=== PATIENT | male | born 1975 | race Caucasian/White ===

== ENCOUNTER 2024-12-11 12:48 | Inpatient (IN) | payer BC ==
[~2024-12-11 12:48] MED LIST: Iopamidol 370 76% 100 ML VIAL ONE
[2024-12-11 13:27] LABS: #Basophils 0.05 10x3/uL (0.0-0.2); #Eosinophils 0.52 10x3/uL (0.0-0.7); #Monocytes 0.75 10x3/uL (0.11-0.59); #Neutrophils 3.70 10x3/uL (1.40-6.50); %Basophils 0.6 % (0.0-1.0); %Eosinophils 6.0 % (0.0-10.0); %Lymphocytes 41.3 % (21.0-51.0); %Monocytes 8.7 % (0.0-10.0); %Neutrophils 42.9 % (42.0-75.0); Hematocrit 43.8 % (42.0-52.0); Hemoglobin 14.7 g/dL (14.0-18.0); Mean Corpuscular Hemoglobin 29.9 pg (27.0-31.0); Mean Corpuscular Volume 89.2 fL (78.0-98.0); Platelet Count 191 10x3/uL (130-400); Red Blood Cell (RBC) Count 4.91 mill/uL (4.70-6.10); White Blood Cell (WBC) Count 8.62 10x3/uL (4.8-10.8)
[2024-12-11] MEDS ORDERED: Aspirin Chewable 81 MG TAB ONE (13:30)
[2024-12-11] MEDS ORDERED: Nitroglycerin 0.4 MG TAB 1 EACH ONE (13:30)
[2024-12-11 13:41] LABS: ALT (SGPT) 75 U/L (Less than 45); AST (SGOT) 41 U/L (11-34); Albumin 4.8 g/dL (3.1-4.5); Alkaline Phosphatase 59 U/L (40-110); Anion Gap 16 mmol/L (10-20); BUN (Urea Nitrogen) 12 mg/dL (8.9-20.6); Bilirubin, Total 0.8 mg/dL (0.3-1.2); Calc. Creatinine Clearance 0 mL/min (70-130); Calcium 9.7 mg/dL (7.8-10.44); Carbon Dioxide 24 mmol/L (22-29); Chloride 103 mmol/L (98-107); Globulin 3.3 g/dL (2.4-3.5); Glucose 106 mg/dL (70-105); Potassium 3.4 mmol/L (3.5-5.1); Sodium 140 mmol/L (136-145)
[2024-12-11] MEDS ORDERED: Adenosine 6 mg (2 mL) VIAL ONE (14:36)
[2024-12-11] MEDS ORDERED: Heparin 10,000 UNITS/ 10 ML VIAL ONE ×3 (14:37→15:48)
[2024-12-11] MEDS ORDERED: PHENYLEPHRINE-NS 100 MCG/ML 10 ML SYRINGE ONE (14:37)
[2024-12-11] MEDS ORDERED: Nitroglycerin 50 MG/250 ML BOT 0 ML ONE (14:37)
[2024-12-11] MEDS ORDERED: Lidocaine 1% (PF) 30 ML VIAL ONE (14:37)
[2024-12-11] MEDS ORDERED: Heparin 25,000 UNITS/D5W 500 ml bag ONE (14:38)
[2024-12-11] MEDS ORDERED: Ondansetron PF 4 MG/2 ML Vial IVP PRN (18:24)
[2024-12-11] MEDS ORDERED: Senokot S 8.6-50 MG TAB PO PRN (18:24)
[2024-12-11] MEDS ORDERED: Calcium Carbonate 500 MG ChewTAB PO PRN (18:24)
[2024-12-11 23:56] LABS: #Basophils 0.04 10x3/uL (0.0-0.2); #Eosinophils 0.16 10x3/uL (0.0-0.7); #Monocytes 0.68 10x3/uL (0.11-0.59); #Neutrophils 5.69 10x3/uL (1.40-6.50); %Basophils 0.5 % (0.0-1.0); %Eosinophils 2.0 % (0.0-10.0); %Lymphocytes 19.5 % (21.0-51.0); %Monocytes 8.3 % (0.0-10.0); %Neutrophils 69.3 % (42.0-75.0); Hematocrit 36.3 % (42.0-52.0); Hemoglobin 12.4 g/dL (14.0-18.0); Mean Corpuscular Hemoglobin 30.2 pg (27.0-31.0); Mean Corpuscular Volume 88.5 fL (78.0-98.0); Platelet Count 160 10x3/uL (130-400); Red Blood Cell (RBC) Count 4.10 mill/uL (4.70-6.10); White Blood Cell (WBC) Count 8.20 10x3/uL (4.8-10.8)
[2024-12-12 05:17] LABS: #Basophils Less than 0.03 10x3/uL (0.0-0.2); #Eosinophils 0.08 10x3/uL (0.0-0.7); #Monocytes 0.60 10x3/uL (0.11-0.59); #Neutrophils 6.06 10x3/uL (1.40-6.50); %Basophils 0.3 % (0.0-1.0); %Eosinophils 1.0 % (0.0-10.0); %Lymphocytes 14.6 % (21.0-51.0); %Monocytes 7.5 % (0.0-10.0); %Neutrophils 76.2 % (42.0-75.0); Hematocrit 36.6 % (42.0-52.0); Hemoglobin 12.5 g/dL (14.0-18.0); Mean Corpuscular Hemoglobin 30.9 pg (27.0-31.0); Mean Corpuscular Volume 90.4 fL (78.0-98.0); Platelet Count 175 10x3/uL (130-400); Red Blood Cell (RBC) Count 4.05 mill/uL (4.70-6.10); White Blood Cell (WBC) Count 7.95 10x3/uL (4.8-10.8)
[2024-12-12 05:40] LABS: ALT (SGPT) 67 U/L (Less than 45); AST (SGOT) 198 U/L (11-34); Albumin 3.7 g/dL (3.1-4.5); Alkaline Phosphatase 47 U/L (40-110); Anion Gap 13 mmol/L (10-20); BUN (Urea Nitrogen) 11 mg/dL (8.9-20.6); Bilirubin, Total 0.8 mg/dL (0.3-1.2); Calc. Creatinine Clearance 124 mL/min (70-130); Calcium 8.4 mg/dL (7.8-10.44); Carbon Dioxide 21 mmol/L (22-29); Cardiac Risk 5.6 (Less than 4.5); Chloride 107 mmol/L (98-107); Cholesterol 200 mg/dl (< 200 Desired); Globulin 2.7 g/dL (2.4-3.5); Glucose 109 mg/dL (70-105); HDL Cholesterol 36 mg/dL (>60 Neg Risk); LDL Cholesterol, Calculated 106 mg/dL; Magnesium 1.7 mg/dL (1.6-2.6); Potassium 3.9 mmol/L (3.5-5.1); Sodium 137 mmol/L (136-145); Triglycerides 289 mg/dL (Less than 150)
[2024-12-12 06:38] VITALS: BMI 34.8
[2024-12-12] MEDS: Magnesium 2 GM/50 ML(in water) 2 GM in Premix 1 BAG IVPB SCH (09:38)
[2024-12-12] MEDS: Aspirin Chewable 81 MG TAB PO SCH (09:39)
[2024-12-12] MEDS: PNEUMOC 20-VAL CONJ-DIP CRM/PF 0.5 ML SYRINGE IM ONE (09:40)
[2024-12-12] MEDS: Metoprolol Succinate XL 50 MG ER.TAB PO SCH (10:51)
[2024-12-12] MEDS: Losartan 25 MG TAB PO SCH (10:51)
[2024-12-12] MEDS: Apixaban 5 MG TAB PO SCH (20:23)
[2024-12-13 05:47] LABS: ALT (SGPT) 56 U/L (Less than 45); AST (SGOT) 125 U/L (11-34); Albumin 3.8 g/dL (3.1-4.5); Alkaline Phosphatase 46 U/L (40-110); Anion Gap 14 mmol/L (10-20); BUN (Urea Nitrogen) 11 mg/dL (8.9-20.6); Bilirubin, Total 1.0 mg/dL (0.3-1.2); Calc. Creatinine Clearance 124 mL/min (70-130); Calcium 8.8 mg/dL (7.8-10.44); Carbon Dioxide 24 mmol/L (22-29); Chloride 107 mmol/L (98-107); Globulin 2.9 g/dL (2.4-3.5); Glucose 95 mg/dL (70-105); Potassium 3.7 mmol/L (3.5-5.1); Sodium 141 mmol/L (136-145)
[2024-12-13 06:34] LABS: #Basophils Less than 0.03 10x3/uL (0.0-0.2); #Eosinophils 0.14 10x3/uL (0.0-0.7); #Monocytes 0.82 10x3/uL (0.11-0.59); #Neutrophils 5.44 10x3/uL (1.40-6.50); %Basophils 0.1 % (0.0-1.0); %Eosinophils 1.7 % (0.0-10.0); %Lymphocytes 21.3 % (21.0-51.0); %Monocytes 10.0 % (0.0-10.0); %Neutrophils 66.5 % (42.0-75.0); Hematocrit 36.9 % (42.0-52.0); Hemoglobin 12.3 g/dL (14.0-18.0); Mean Corpuscular Hemoglobin 30.4 pg (27.0-31.0); Mean Corpuscular Volume 91.3 fL (78.0-98.0); Platelet Count 139 10x3/uL (130-400); Red Blood Cell (RBC) Count 4.04 mill/uL (4.70-6.10); White Blood Cell (WBC) Count 8.18 10x3/uL (4.8-10.8)
[2024-12-14] MEDS: Dapagliflozin Propanediol 10 MG TAB PO SCH (09:44)
[2024-12-14 11:48] VITALS: BP 127/75; TEMP 97.6
== END 2024-12-14 15:25 | disposition home or self-care (01) | DRG 251 ==
LOC: ERS 12:48 → CCU 16:15 → 2NO 12-12 15:38
PROVIDERS: ADMIT Internal Medicine; ATTEND Student in an Organized Health Care Education/Training Program
DX: I21.3 ST elevation (STEMI) myocardial infarction of unspecified site (principal); F10.10 Alcohol abuse, uncomplicated; E87.6 Hypokalemia; K70.0 Alcoholic fatty liver
CPT/HCPCS: 36415; 71045; 76705; 80053; 80061; 83036; 83735; 84443; 84484; 85025; 85347; 92941; 93005; 93306; 93458; 93798; 96374; 96376; 99152; 99153; C1757; C1769; C1887; C1894; J0153; J0461; J1644; J2250; J3010; J3246; J3475; J7030; Q9967